=== PATIENT | female | born 1985 | race African-American/Black ===

== ENCOUNTER 2017-05-24 14:38 | Emergency (ER) | payer SELFPAY ==
[~2017-05-24] VITALS: Ht 154.9 cm; Wt 69.9 kg
[~2017-05-24 14:38] MED LIST: NAPR550T PO; ORPH100T PO
[2017-05-24 15:07] VITALS: BP 118/67
[2017-05-24] MEDS ORDERED: AMOX1TAB61 PO (15:33)
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
== END 2017-05-24 15:39 | disposition home or self-care (01) ==
LOC: ER 14:38
DX: S41.051A Open bite of right shoulder, initial encounter (principal); Y04.1XXA Assault by human bite, initial encounter; Y93.89 Activity, other specified; Y92.89 Other specified places as the place of occurrence of the external cause; Y99.8 Other external cause status
CPT/HCPCS: 99283

== ENCOUNTER 2018-04-16 22:00 | Emergency (ER) | payer SELFPAY ==
[2018-04-16 22:48] LABS: ADD MAN DIFF? NO
[2018-04-16 22:50] LABS: BASO % 0 % (0-3); EOS % 0 % (0-3); HEMATOCRIT 43.7 % (36.0-47.0); HEMOGLOBIN 14.5 g/dL (12.0-15.5); LYMPH # 1.3 x10^3/uL (1.0-4.8); LYMPH % 14 % (24-48); MEAN CORPUSCULAR HEMOGLOBIN 28 pg (25-35); MEAN CORPUSCULAR HGB CONC 33 g/dL (31-37); MEAN CORPUSCULAR VOLUME 84 fL (79-100); MONO # 0.8 x10^3/uL (0.0-1.1); MONO % 9 % (0-9); NEUT # 7.4 x10^3uL (1.8-7.7); NEUT % 77 % (31-73); PLATELET COUNT 379 x10^3/uL (140-400); RED BLOOD COUNT 5.19 x10^6/uL (3.50-5.40); RED CELL DISTRIBUTION WIDTH 14.3 % (11.5-14.5); WHITE BLOOD COUNT 9.6 x10^3/uL (4.0-11.0)
[2018-04-16] MEDS: ONDANSETRON PF 4 MG/2 ML VIAL. IV (23:10)
[2018-04-16] MEDS: IV NORMAL SALINE 1000ML BAG 1,000 ML IV (23:10)
[2018-04-16 23:18] LABS: BLOOD UREA NITROGEN 18 mg/dL (7-20); BUN/CREATININE RATIO 23 (6-20); CALCIUM 9.5 mg/dL (8.5-10.1); CARBON DIOXIDE 29 mmol/L (21-32); CHLORIDE 99 mmol/L (98-107); CREATININE 0.8 mg/dL (0.6-1.0); GFR 98.8; GLUCOSE 88 mg/dL (70-99); SODIUM 135 mmol/L (136-145)
[2018-04-16 23:19] LABS: ALBUMIN 3.9 g/dL (3.4-5.0); ALBUMIN/GLOBULIN RATIO 0.6 (1.0-1.7); ALK PHOS 74 U/L (46-116); LIPASE 112 U/L (73-393); TOTAL BILIRUBIN 1.2 mg/dL (0.2-1.0)
[2018-04-16 23:22] LABS: BILIRUBIN,URINE MODERATE (NEG); CLARITY,URINE CLOUDY; GLUCOSE,URINE NEGATIVE (NEG); NITRITE,URINE NEGATIVE (NEG); PH,URINE 5.5; PROTEIN,URINE 30 mg/dL (NEG-TRACE)
[2018-04-16 23:27] LABS: COLOR,URINE DK YELLOW
[2018-04-16 23:33] LABS: BACTERIA,URINE FEW /HPF (0-FEW); SQUAMOUS EPITHELIAL CELL,UR MOD /LPF
[2018-04-16 23:40] LABS: ALT (SGPT) 32 U/L (14-59)
[2018-04-16 23:41] LABS: ANION GAP 7 (6-14); AST (SGOT) 27 U/L (15-37); POTASSIUM 4.1 mmol/L (3.5-5.1)
[2018-04-17] MEDS: MORPHINE SULFATE 4 MG/ML DISP.SYRIN. IV (00:09)
[2018-04-17] MEDS: IOHEXOL 300 MG/ML 100ML VIAL. IV (00:25)
[2018-04-17] MEDS ORDERED: CONTRAST GIVEN. MC (00:30)
[2018-04-17] MEDS: METOCLOPRAMIDE HCL 10 MG/2 ML VIAL. IV (00:43)
[2018-04-17] MEDS: diphenhydrAMINE 50 MG/ML VIAL IVP (00:44)
[2018-04-17] MEDS: LIDO:MAALOX 1:1 20 ML SINGLE DOSE. SWSW (00:52)
[2018-04-17 07:18] LABS: URINE HCG POC HCG NEGATIVE (Negative)
== END 2018-04-17 03:06 | disposition home or self-care (01) ==
LOC: ER 04-17 03:06
DX: R10.13 Epigastric pain (principal); R11.2 Nausea with vomiting, unspecified; Z96.659 Presence of unspecified artificial knee joint
CPT/HCPCS: 36415; 74177; 76705; 80053; 81001; 81025; 83690; 84702; 85025; 87086; 96361; 96374; 96375; 99285-25; J1200; J2270; J2405; J2765; J7030; Q9967

== ENCOUNTER 2019-07-20 17:00 | Emergency (ER) | payer SELFPAY ==
[~2019-07-20] VITALS: Ht 170.2 cm; Wt 70.3 kg
[~2019-07-20 17:00] MED LIST changes: +AMOX1TAB61 PO; +HYDR-3164 PO; +NAPR-682 PO; -NAPR550T PO; +ONDA4TAB7 PO
[2019-07-20] MEDS ORDERED: IV NORMAL SALINE 1000ML BAG 1,000 ML IV SCH (17:31)
--- NOTE | 2019-07-20 17:33 | PHYS DOC ---
Past Medical History Past Medical History: No Pertinent History Past Surgical History: Knee Replacement Alcohol Use: Heavy Drug Use: None Adult General Chief Complaint Chief Complaint: ABDOMINAL PAIN HPI HPI Patient is a 34 year old female who presents with 2 weeks of nausea and vomiting. History of pancreatitis. Patient drinks a sixpack of beer daily. Patient rates her epigastric pain is a burning and 9 out of 10. Review of Systems Review of Systems GI: abdominal pain, nausea, vomiting, denies bloody stools or diarrhea [] All other systems were reviewed and found to be within normal limits, except as documented in this note. Current Medications Current Medications Current Medications Medications (Trade) Dose Ordered Sig/Eran Start Time Stop Time Status Last Admin Dose Admin Fentanyl Citrate (Fentanyl 2ml Vial) 50 mcg 1X ONCE 07/20/19 18:00 07/20/19 18:01 DC 07/20/19 17:49 50 MCG Info (CONTRAST GIVEN -- Rx MONITORING) 1 each PRN DAILY PRN 07/20/19 18:00 07/22/19 17:59 Iohexol (Omnipaque 300 Mg/ml) 75 ml 1X ONCE 07/20/19 17:45 07/20/19 17:53 DC 07/20/19 18:14 75 ML Multi-Ingredient Mouthwash/Gargle (Gi Cocktail) 20 ml 1X ONCE 07/20/19 19:30 07/20/19 19:31 07/20/19 19:29 20 ML Multivitamins 10 ml/Thiamine HCl 100 mg/Folic Acid 1 mg/Sodium Chloride 1,011.2 ml @ 1,000.088 mls/hr 1X ONCE 07/20/19 19:00 07/20/19 20:00 07/20/19 18:56 1,000.088 MLS/HR Ondansetron HCl (Zofran) 4 mg 1X ONCE 07/20/19 18:00 07/20/19 18:01 DC 07/20/19 17:49 4 MG Pantoprazole Sodium (PROTONIX VIAL for IV PUSH) 40 mg 1X ONCE 07/20/19 18:00 07/20/19 18:01 DC 07/20/19 17:50 40 MG Sodium Chloride 1,000 ml @ 1,000 mls/hr Q1H 07/20/19 17:31 07/20/19 18:30 DC 07/20/19 17:31 1,000 MLS/HR Allergies Allergies Allergies Coded Allergies Type Severity Reaction Last Updated Verified No Known Drug Allergies 02/10/16 No Physical Exam Physical Exam Constitutional: Well developed, well nourished, no acute distress, non-toxic appearance. [] Cardiovascular:Heart rate regular rhythm, no murmur [] Lungs & Thorax: Bilateral breath sounds clear to auscultation [] Abdomen: Bowel sounds normal, soft, generalized tenderness, no masses, no pulsatile masses. [] Skin: Warm, dry, no erythema, no rash. [] Extremities: No tenderness, no cyanosis, no clubbing, ROM intact, no edema. [] Neurologic: Alert and oriented X 3, normal motor function, normal sensory function, no focal deficits noted. [] Psychologic: Affect normal, judgement normal, mood normal. [] Current Patient Data Vital Signs Vital Signs Date Time Temp Pulse Resp B/P (MAP) Pulse Ox O2 Delivery O2 Flow Rate FiO2 07/20/19 18:57 57 15 112/68 (83) 97 Room Air 07/20/19 17:26 99.3 99.3 Lab Values Laboratory Tests Test 07/20/19 17:40 07/20/19 19:00 07/20/19 19:05 White Blood Count 7.4 x10^3/uL (4.0-11.0) Red Blood Count 5.02 x10^6/uL (3.50-5.40) Hemoglobin 13.9 g/dL (12.0-15.5) Hematocrit 42.1 % (36.0-47.0) Mean Corpuscular Volume 84 fL (79-100) Mean Corpuscular Hemoglobin 28 pg (25-35) Mean Corpuscular Hemoglobin Concent 33 g/dL (31-37) Red Cell Distribution Width 14.0 % (11.5-14.5) Platelet Count 293 x10^3/uL (140-400) Neutrophils (%) (Auto) 74 % (31-73) H Lymphocytes (%) (Auto) 17 % (24-48) L Monocytes (%) (Auto) 9 % (0-9) Eosinophils (%) (Auto) 0 % (0-3) Basophils (%) (Auto) 1 % (0-3) Neutrophils # (Auto) 5.4 x10^3/uL (1.8-7.7) Lymphocytes # (Auto) 1.2 x10^3/uL (1.0-4.8) Monocytes # (Auto) 0.6 x10^3/uL (0.0-1.1) Eosinophils # (Auto) 0.0 x10^3/uL (0.0-0.7) Basophils # (Auto) 0.0 x10^3/uL (0.0-0.2) Sodium Level 148 mmol/L (136-145) H Potassium Level 3.4 mmol/L (3.5-5.1) L Chloride Level 107 mmol/L (98-107) Carbon Dioxide Level 26 mmol/L (21-32) Anion Gap 15 (6-14) H Blood Urea Nitrogen 12 mg/dL (7-20) Creatinine 1.0 mg/dL (0.6-1.0) Estimated GFR (Cockcroft-Gault) 75.9 BUN/Creatinine Ratio 12 (6-20) Glucose Level 105 mg/dL (70-99) H Calcium Level 9.9 mg/dL (8.5-10.1) Total Bilirubin 0.5 mg/dL (0.2-1.0) Aspartate Amino Transferase (AST) 15 U/L (15-37) Alanine Aminotransferase (ALT) 19 U/L (14-59) Alkaline Phosphatase 64 U/L (46-116) Troponin I Quantitative < 0.017 ng/mL (0.000-0.055) Total Protein 8.4 g/dL (6.4-8.2) H Albumin 4.3 g/dL (3.4-5.0) Albumin/Globulin Ratio 1.0 (1.0-1.7) Lipase 228 U/L (73-393) Ethyl Alcohol Level < 10 mg/dL (0-10) Urine Collection Type Unknown Urine Color Yellow Urine Clarity Clear Urine pH 8.5 Urine Specific [place] >=1.030 Urine Protein 30 mg/dL (NEG-TRACE) Urine Glucose (UA) Negative mg/dL (NEG) Urine Ketones (Stick) 40 mg/dL (NEG) Urine Blood Negative (NEG) Urine Nitrite Negative (NEG) Urine Bilirubin Negative (NEG) Urine Urobilinogen Dipstick 1.0 mg/dL (0.2 mg/dL) Urine Leukocyte Esterase Negative (NEG) Urine RBC 0 /HPF (0-2) Urine WBC 0 /HPF (0-4) Urine Squamous Epithelial Cells Few /LPF Urine Bacteria Few /HPF (0-FEW) Urine Opiates Screen Neg (NEG) Urine Methadone Screen Neg (NEG) Urine Barbiturates Neg (NEG) Urine Phencyclidine Screen Pos (NEG) Urine Amphetamine/Methamphetamine Neg (NEG) Urine Benzodiazepines Screen Neg (NEG) Urine Cocaine Screen Pos (NEG) Urine Cannabinoids Screen Neg (NEG) Urine Ethyl Alcohol Neg (NEG) POC Urine HCG, Qualitative Hcg negative (Negative) Laboratory Tests 07/20/19 17:40 Laboratory Tests 07/20/19 17:40 EKG EKG Sinus Rhythm and no STEMI Interpretation Time: [address] Reyez Radiology/Procedures Radiology/Procedures [] Impressions: [facility] [address] [place] [address] IMAGING REPORT Signed PATIENT: JULI CARBONE ACCOUNT: [id number] : 1985 LOCATION: ER AGE: 34 SEX: F EXAM STATUS: REG ER ORD. PHYSICIAN: ANTONY HINOJOSA APRN REASON: generalized abdominal pain PROCEDURE: CT ABD PELV W/ IV CONTRST ONLY CT scan of the abdomen and pelvis with contrast 07/20/2019 CLINICAL HISTORY: Generalized abdominal pain. TECHNIQUE: After the intravenous administration of 75 cc of Omnipaque 300 only, contiguous, 5 mm axial sections were obtained through the abdomen and pelvis. One or more of the following individualized dose reduction techniques were utilized for this study: 1. Automated exposure control. 2. Adjustment of the mA and/or kV according to patient size. 3. Use of iterative reconstruction technique. FINDINGS: Comparison study is dated 04/23/2018. Images through the lung bases demonstrate minimal dependent subsegmental atelectasis bilaterally. A 3 mm calcified granuloma is seen involving the left lower lobe. Images through the lung bases demonstrate decreased attenuation of the liver parenchyma consistent with fatty infiltration. The spleen, pancreas, adrenal glands and kidneys are within normal limits. The abdominal aorta tapers normally. The gallbladder is contracted. No free fluid or free air is seen within the abdomen. There is no evidence of bowel obstruction. The appendix is well-visualized and is within normal limits. Images through the pelvis demonstrate the urinary bladder distended with urine. Calcifications are seen within the pelvis consistent with phleboliths. No adnexal mass is seen. No free fluid is noted. Mild to moderate S-shaped curvature of the thoracolumbar spine is seen. Degenerative changes are seen involving lower thoracic and throughout the lumbar spine. IMPRESSION: No acute abnormality is seen. Electronically signed by: Yosef Martínez MD (07/20/2019 6:33 PM) [facility] DICTATED and SIGNED BY: YOSEF MARTÍNEZ MD DATE: 07/20/191832 Course & Med Decision Making Course & Med Decision Making Generalized abdominal pain. Patient states that she can not keep food or fluids down. Denies blood in her vomit or stool. Skin pink warm and dry. Alert and oriented. Speaks in full clear sentences. Ambulatory with a steady gait. PERRLA. Denies diarrhea, soa, chest pain, dizziness, headache, numbness or tingling. No extremity swelling. Lungs are clear to auscultation. Patient states she has not had a drink since Saturday. Patient has no tremors or any signs of etoh withdrawal. Patient is calm and cooperative. CT ABD PELV shows no acute findings. 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 Patient received Protonix, NS bolus, Banana Bag and a GI cocktail in the ED. I have spoken to Dr Reyez about findings on this patient and plan of care. Dragon Disclaimer Michelleon Disclaimer This electronic medical record was generated, in whole or in part, using a voice recognition dictation system. Departure Departure Impression: Primary Impression: Nausea and vomiting Additional Impression: Generalized abdominal pain Disposition: 01 HOME, SELF-CARE Condition: STABLE Referrals: NO PCP (PCP) Patient Instructions: Alcoholic Gastritis-Brief Additional Instructions: Follow up with primary care provider. Stop drinking alcohol as soon as possible. Take medications as prescribed. Scripts Ondansetron (ONDANSETRON ODT) 4 Mg Tab.rapdis 1 TAB PO PRN Q6-8HRS, #20 TAB Prov: ANTONY HINOJOSA ASBESTOS PIPE SUPERVISOR 07/20/19 Famotidine (PEPCID) 20 Mg Tablet 20 MG PO BID, #20 TAB Prov: ANTONY HINOJOSA 07/20/19 Problem Qualifiers Primary Impression: Nausea and vomiting Vomiting type: unspecified Vomiting Intractability: non-intractable Qualified Codes: R11.2 - Nausea with vomiting, unspecified ANTONY HINOJOSA [employer]BESTOS PIPE SUPERVISOR Jul 20, 2019 17:33
[2019-07-20] MEDS ORDERED: IOHEXOL 300 MG/ML 100ML VIAL. IV ONE (17:45)
[2019-07-20 17:49] LABS: BASO % 1 % (0-3); EOS % 0 % (0-3); HEMATOCRIT 42.1 % (36.0-47.0); HEMOGLOBIN 13.9 g/dL (12.0-15.5); LYMPH # 1.2 x10^3/uL (1.0-4.8); LYMPH % 17 % (24-48); MEAN CORPUSCULAR HEMOGLOBIN 28 pg (25-35); MEAN CORPUSCULAR HGB CONC 33 g/dL (31-37); MEAN CORPUSCULAR VOLUME 84 fL (79-100); MONO # 0.6 x10^3/uL (0.0-1.1); MONO % 9 % (0-9); NEUT # 5.4 x10^3/uL (1.8-7.7); NEUT % 74 % (31-73); PLATELET COUNT 293 x10^3/uL (140-400); RED BLOOD COUNT 5.02 x10^6/uL (3.50-5.40); WHITE BLOOD COUNT 7.4 x10^3/uL (4.0-11.0)
[2019-07-20 17:59] LABS: CALCIUM 9.9 mg/dL (8.5-10.1); GFR 75.9; POTASSIUM 3.4 mmol/L (3.5-5.1)
[2019-07-20] MEDS ORDERED: CONTRAST GIVEN. MC PRN (18:00)
[2019-07-20] MEDS ORDERED: ONDANSETRON PF 4 MG/2 ML VIAL. IV ONE (18:00)
[2019-07-20] MEDS ORDERED: PANTOPRAZOLE IV PUSH 40 MG VIAL. IVP ONE (18:00)
[2019-07-20] MEDS ORDERED: fentaNYL PF VIAL 100 MCG/2 ML VIAL IV ONE (18:00)
[2019-07-20 18:04] LABS: ALBUMIN 4.3 g/dL (3.4-5.0); TOTAL BILIRUBIN 0.5 mg/dL (0.2-1.0); TOTAL PROTEIN 8.4 g/dL (6.4-8.2)
--- NOTE | 2019-07-20 18:36 | RAD ---
CT scan of the abdomen and pelvis with contrast 07/20/2019 CLINICAL HISTORY: Generalized abdominal pain. TECHNIQUE: After the intravenous administration of 75 cc of Omnipaque 300 only, contiguous, 5 mm axial sections were obtained through the abdomen and pelvis. One or more of the following individualized dose reduction techniques were utilized for this study: 1. Automated exposure control. 2. Adjustment of the mA and/or kV according to patient size. 3. Use of iterative reconstruction technique. FINDINGS: Comparison study is dated 04/23/2018. Images through the lung bases demonstrate minimal dependent subsegmental atelectasis bilaterally. A 3 mm calcified granuloma is seen involving the left lower lobe. Images through the lung bases demonstrate decreased attenuation of the liver parenchyma consistent with fatty infiltration. The spleen, pancreas, adrenal glands and kidneys are within normal limits. The abdominal aorta tapers normally. The gallbladder is contracted. No free fluid or free air is seen within the abdomen. There is no evidence of bowel obstruction. The appendix is well-visualized and is within normal limits. Images through the pelvis demonstrate the urinary bladder distended with urine. Calcifications are seen within the pelvis consistent with phleboliths. No adnexal mass is seen. No free fluid is noted. Mild to moderate S-shaped curvature of the thoracolumbar spine is seen. Degenerative changes are seen involving lower thoracic and throughout the lumbar spine. IMPRESSION: No acute abnormality is seen. Electronically signed by: Yosef Martínez MD (07/20/2019 6:33 PM) [facility]
[2019-07-20] MEDS ORDERED: MULTIVIT INFUSN,ADULT 4,VIT K 10 ML, THIAMINE INJ 100 MG, FOLIC ACID INJ 1 MG in IV NOR... IV ONE (19:00)
[2019-07-20 19:12] LABS: BILIRUBIN,URINE NEGATIVE (NEG); CLARITY,URINE CLEAR; COLOR,URINE YELLOW; NITRITE,URINE NEGATIVE (NEG); PH,URINE 8.5; PROTEIN,URINE 30 mg/dL (NEG-TRACE)
[2019-07-20 19:18] LABS: AMPHETAMINE/METHAMPHETAMINE NEG (NEG); BARBITURATES NEG (NEG); BENZODIAZEPINES NEG (NEG); CANNABINOIDS NEG (NEG); COCAINE POS (NEG); METHADONE NEG (NEG); OPIATES NEG (NEG); PHENCYCLIDINE POS (NEG)
[2019-07-20 19:22] LABS: BACTERIA,URINE FEW /HPF (0-FEW); RBC,URINE 0 /HPF (0-2); SQUAMOUS EPITHELIAL CELL,UR FEW /LPF; WBC,URINE 0 /HPF (0-4)
[2019-07-20] MEDS ORDERED: ONDA4TAB12 PO (19:23)
[2019-07-20] MEDS ORDERED: FAMO-63 PO (19:23)
[2019-07-20] MEDS ORDERED: CEPH-264 PO (19:26)
[2019-07-20] MEDS ORDERED: LIDO:MAALOX 1:1 20 ML SINGLE DOSE. SWSW ONE (19:30)
[2019-07-20 20:40] VITALS: BP 143/85
--- NOTE | 2019-07-21 06:15 | EKG ---
[facility] [address] [place] [address] Test Date: 2019-07-20 Test Time: 19:12:29 Pat Name: JULI CARBONE Department: Room: Gender: F System Archive Analyst: : 1985 Requested By: ANTONY HINOJOSA Order Number: [id number] Reading MD: Michael Schofield MD Measurements Intervals [place] Rate: 50 P: 58 [place]: 154 QRS: -11 QRSD: 70 T: -17 QT: 468 QTc: 429 Interpretive Statements SINUS RHYTHM ATRIAL PREMATURE COMPLEX(ES) INFERIOR LEADS ABNORMAL ECG NON-SPECIFIC ST/T CHANGES Electronically Signed On 07-28-2019 15:43:43 CDT by Michael Schofield MD
== END 2019-07-20 20:55 | disposition home or self-care (01) ==
LOC: ER 17:00
DX: R11.2 Nausea with vomiting, unspecified (principal); R10.84 Generalized abdominal pain; R10.13 Epigastric pain; F10.20 Alcohol dependence, uncomplicated; Y90.9 Presence of alcohol in blood, level not specified
CPT/HCPCS: 36415; 74177; 80053; 80307; 81001; 81025; 83690; 84484; 85025; 93005; 96361; 96365; 96375; 99285; C9113; G0480; J2405; J3010; J7030; Q9967

== ENCOUNTER 2020-03-04 08:24 | Emergency (ER) | payer SELFPAY ==
[~2020-03-04] VITALS: Ht 154.9 cm; Wt 67.0 kg
[~2020-03-04 08:24] MED LIST changes: +CEPH-264 PO; +FAMO-63 PO; +ONDA4TAB12 PO
--- NOTE | 2020-03-04 09:37 | PHYS DOC ---
Past Medical History Past Medical History: No Pertinent History Past Surgical History: Knee Replacement Smoking Status: Never Smoker Alcohol Use: Heavy Drug Use: None General Adult EDM: Chief Complaint: GI PROBLEM HPI: HPI: Patient is a 35 year old female who presents to ER today for evaluation of nausea, vomiting, abdominal pain for about 3 days. Patient said whenever she vomits she noticed some yellow bile in her vomitus. Patient denies any fever, no diarrhea., No chest pain, no trouble breathing, no cough. 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 Patient said none of her client had the coronavirus. Review of Systems: Review of Systems: Constitutional: Denies fever or chills. [] Eyes: Denies change in visual acuity. [] HENT: Denies nasal congestion or sore throat. [] Respiratory: Denies cough or shortness of breath. [] Cardiovascular: Denies chest pain or edema. [] GI: Positive for nausea vomiting, abdominal pain, no diarrhea : Denies dysuria. [] Musculoskeletal: Denies back pain or joint pain. [] Integument: Denies rash. [] Neurologic: Denies headache, focal weakness or sensory changes. [] Endocrine: Denies polyuria or polydipsia. [] Lymphatic: Denies swollen glands. [] Psychiatric: Denies depression or anxiety. [] Heart Score: Risk Factors: Risk Factors: DM, Current or recent (<one month) smoker, HTN, HLP, family history of CAD, obesity. Risk Scores: Score 0 - 3: 2.5% MACE over next 6 weeks - Discharge Home Score 4 - 6: 20.3% MACE over next 6 weeks - Admit for Clinical Observation Score 7 - 10: 72.7% MACE over next 6 weeks - Early Invasive Strategies Current Medications: Current Medications Medications (Trade) Dose Ordered Sig/Eran Start Time Stop Time Status Last Admin Dose Admin Ondansetron HCl (Zofran) 4 mg 1X ONCE 03/04/20 09:45 03/04/20 09:46 UNV Sodium Chloride 1,000 ml @ 1,000 mls/hr 1X ONCE 03/04/20 09:45 03/04/20 10:44 Allergies: Allergies: Allergies Coded Allergies Type Severity Reaction Last Updated Verified No Known Drug Allergies 02/10/16 No Physical Exam: PE: Constitutional: Well developed, well nourished, no acute distress, non-toxic appearance. [] HENT: Normocephalic, atraumatic, bilateral external ears normal, oropharynx moist, no oral exudates, nose normal. [] Eyes: PERRLA, EOMI, conjunctiva normal, no discharge. [] Neck: Normal range of motion, no tenderness, supple, no stridor. [] Cardiovascular:Heart rate regular rhythm, no murmur [] Lungs & Thorax: Bilateral breath sounds clear to auscultation [] Abdomen: Bowel sounds normal, soft, there is tenderness to palpation in epigastric area, no masses, no pulsatile masses. [] Skin: Warm, dry, no erythema, no rash. [] Back: No tenderness, no CVA tenderness. [] Extremities: No tenderness, no cyanosis, no clubbing, ROM intact, no edema. [] Neurologic: Alert and oriented X 3, normal motor function, normal sensory function, no focal deficits noted. [] Psychologic: Affect normal, judgement normal, mood normal. [] Current Patient Data: Labs: Laboratory Tests Test 03/04/20 09:15 03/04/20 09:53 White Blood Count 6.3 x10^3/uL Red Blood Count 5.00 x10^6/uL Hemoglobin 14.2 g/dL Hematocrit 43.1 % Mean Corpuscular Volume 86 fL Mean Corpuscular Hemoglobin 28 pg Mean Corpuscular Hemoglobin Concent 33 g/dL Red Cell Distribution Width 15.1 % Platelet Count 366 x10^3/uL Neutrophils (%) (Auto) 66 % Lymphocytes (%) (Auto) 24 % Monocytes (%) (Auto) 10 % Eosinophils (%) (Auto) 0 % Basophils (%) (Auto) 1 % Neutrophils # (Auto) 4.2 x10^3/uL Lymphocytes # (Auto) 1.5 x10^3/uL Monocytes # (Auto) 0.6 x10^3/uL Eosinophils # (Auto) 0.0 x10^3/uL Basophils # (Auto) 0.0 x10^3/uL Urine Collection Type Unknown Urine Color Leonie Urine Clarity Cloudy Urine pH 8.5 Urine Specific [place] >=1.030 Urine Protein 100 mg/dL Urine Glucose (UA) Negative mg/dL Urine Ketones (Stick) Negative mg/dL Urine Blood Negative Urine Nitrite Negative Urine Bilirubin Small Urine Urobilinogen Dipstick 1.0 mg/dL Urine Leukocyte Esterase Small Urine RBC 1-2 /HPF Urine WBC 5-10 /HPF Urine Squamous Epithelial Cells Many /LPF Urine Bacteria Few /HPF Sodium Level 142 mmol/L Potassium Level 3.6 mmol/L Chloride Level 107 mmol/L Carbon Dioxide Level 24 mmol/L Anion Gap 11 Blood Urea Nitrogen 11 mg/dL Creatinine 1.2 mg/dL Estimated GFR (Cockcroft-Gault) 61.2 BUN/Creatinine Ratio 9 Glucose Level 109 mg/dL Calcium Level 9.5 mg/dL Total Bilirubin 0.6 mg/dL Aspartate Amino Transf (AST/SGOT) 24 U/L Alanine Aminotransferase (ALT/SGPT) 33 U/L Alkaline Phosphatase 62 U/L Total Protein 8.4 g/dL Albumin 4.3 g/dL Albumin/Globulin Ratio 1.0 Lipase 252 U/L Bedside Urine HCG, Qualitative Hcg negative Current Medications Medications (Trade) Dose Ordered Sig/Eran Route PRN Reason Start Time Stop Time Status Last Admin Dose Admin Sodium Chloride 1,000 ml @ 1,000 mls/hr 1X ONCE IV 03/04/20 09:45 03/04/20 10:44 DC 03/04/20 09:47 Ondansetron HCl (Zofran) 4 mg 1X ONCE IVP 03/04/20 09:45 03/04/20 09:46 DC 03/04/20 09:47 Multi-Ingredient Mouthwash/Gargle (Gi Cocktail) 20 ml 1X ONCE SWSW 03/04/20 11:00 03/04/20 11:01 DC 03/04/20 11:37 Famotidine (Pepcid Vial) 20 mg 1X ONCE IVP 03/04/20 11:00 03/04/20 11:01 DC 03/04/20 11:40 Vital Signs: Vital Signs Date Time Temp Pulse Resp B/P (MAP) Pulse Ox O2 Delivery O2 Flow Rate FiO2 03/04/20 08:51 99.0 80 16 127/79 (95) 98 Room Air 99.0 EKG: EKG: [] Radiology/Procedures: Radiology/Procedures: [][facility] [address] [place], [place] [id number] IMAGING REPORT Signed PATIENT: JULI CARBONE ACCOUNT: [id number] : 1985 LOCATION: ER AGE: 35 SEX: F EXAM STATUS: REG ER ORD. PHYSICIAN: GLORY NAIR DO REASON: ABDOMINAL PAIN, NAUSEA, VOMITING PROCEDURE: CT ABDOMEN PELVIS WO CONTRAST Axial CT images of the abdomen and pelvis with coronal and sagittal reformats were performed without contrast per renal colic protocol. Exposure: One or more of the following individualized dose reduction techniques were utilized for this examination: 1. Automated exposure control 2. Adjustment of the mA and/or kV according to patient size 3. Use of iterative reconstruction technique Indication: Reason: ABDOMINAL PAIN, NAUSEA, VOMITING / Spl. Instructions: / History: Comparison: 07/20/2019. Findings: No renal, ureteral, or bladder stones are identified. No hydronephrosis, perinephric fat stranding, or hydroureter are seen bilaterally. There is significant scoliosis of the lumbar spine this appears stable. The remainder of the non contrasted abdomen and pelvis is normal in appearance, although evaluation is limited on an unenhanced exam. Impression: 1. No evidence of urolithiasis or urinary obstruction. Electronically signed by: Av Martinez MD (03/04/2020 11:31 AM) [id number] DICTATED and SIGNED BY: AV MARTINEZ MD DATE: 03/04/20 1131 Course & Med Decision Making: Course & Med Decision Making Pertinent Labs and Imaging studies reviewed. (See chart for details) [] Dragon Disclaimer: Dragon Disclaimer: This electronic medical record was generated, in whole or in part, using a voice recognition dictation system. Departure Departure Impression: Primary Impression: Gastritis Additional Impression: Nausea & vomiting Disposition: 01 HOME, SELF-CARE Condition: IMPROVED Referrals: NO PCP (PCP) ADAM CHRISTOPHER MD PLEASE CALL THIS GI DOCTOR FOR FOLLOW UP NEXT WEEK. Patient Instructions: Gastritis, Adult, Nausea and Vomiting Additional Instructions: Thank you for visiting our Emergency Department. We appreciate you trusting us with your care. If any additional problems come up don't hesitate to return to visit us. Please follow up with your primary care provider so they can plan additional care if needed and know about the problem that you had. If symptoms worsen come back to the Emergency Department. Any concerning symptoms that start such as chest pain, shortness of air, weakness or numbness on one side of the body, running high fevers or any other concerning symptoms return to the ER. Scripts Metoclopramide Hcl (REGLAN) 10 Mg Tablet 1 TAB PO QID PRN for NAUSEA for 10 Days, #20 TAB 0 Refills before food and bedtime Prov: GLORY NAIR DO 03/04/20 Sucralfate (CARAFATE) 1 Gm Tablet 1 TAB PO QID for 14 Days, #56 TAB 0 Refills Prov: GLORY NAIR DO 03/04/20 Omeprazole Magnesium (PRILOSEC OTC) 20 Mg Tablet. 1 TAB PO DAILY for 30 Days, #30 TAB 0 Refills Prov: GLORY NAIR DO 03/04/20 GLORY NAIR DO Mar 04, 2020 09:37
[2020-03-04] MEDS ORDERED: IV NORMAL SALINE 1000ML BAG 1,000 ML IV ONE (09:45)
[2020-03-04] MEDS ORDERED: ONDANSETRON PF 4 MG/2 ML VIAL. IVP ONE (09:45)
[2020-03-04 09:58] LABS: BASO % 1 % (0-3); EOS % 0 % (0-3); HEMATOCRIT 43.1 % (36.0-47.0); HEMOGLOBIN 14.2 g/dL (12.0-15.5); LYMPH # 1.5 x10^3/uL (1.0-4.8); LYMPH % 24 % (24-48); MEAN CORPUSCULAR HEMOGLOBIN 28 pg (25-35); MEAN CORPUSCULAR HGB CONC 33 g/dL (31-37); MEAN CORPUSCULAR VOLUME 86 fL (79-100); MONO # 0.6 x10^3/uL (0.0-1.1); MONO % 10 % (0-9); NEUT # 4.2 x10^3/uL (1.8-7.7); NEUT % 66 % (31-73); PLATELET COUNT 366 x10^3/uL (140-400); RED CELL DISTRIBUTION WIDTH 15.1 % (11.5-14.5); WHITE BLOOD COUNT 6.3 x10^3/uL (4.0-11.0)
[2020-03-04 09:59] LABS: CALCIUM 9.5 mg/dL (8.5-10.1); CREATININE 1.2 mg/dL (0.6-1.0); GFR 61.2; POTASSIUM 3.6 mmol/L (3.5-5.1)
[2020-03-04 10:05] LABS: ALBUMIN 4.3 g/dL (3.4-5.0); TOTAL BILIRUBIN 0.6 mg/dL (0.2-1.0); TOTAL PROTEIN 8.4 g/dL (6.4-8.2)
[2020-03-04 10:24] LABS: BILIRUBIN,URINE SMALL (NEG); CLARITY,URINE CLOUDY; COLOR,URINE AMBER; NITRITE,URINE NEGATIVE (NEG); PH,URINE 8.5 (<5.0-8.0); PROTEIN,URINE 100 mg/dL (NEG-TRACE)
[2020-03-04 10:46] LABS: SQUAMOUS EPITHELIAL CELL,UR MANY /LPF
[2020-03-04 10:48] LABS: BACTERIA,URINE FEW /HPF (0-FEW)
[2020-03-04] MEDS ORDERED: LIDO:MAALOX 1:1 20 ML SINGLE DOSE. SWSW ONE (11:00)
[2020-03-04] MEDS ORDERED: FAMOTIDINE 20 MG/2 ML VIAL IVP ONE (11:00)
--- NOTE | 2020-03-04 11:34 | RAD ---
Axial CT images of the abdomen and pelvis with coronal and sagittal reformats were performed without contrast per renal colic protocol. Exposure: One or more of the following individualized dose reduction techniques were utilized for this examination: 1. Automated exposure control 2. Adjustment of the mA and/or kV according to patient size 3. Use of iterative reconstruction technique Indication: Reason: ABDOMINAL PAIN, NAUSEA, VOMITING / Spl. Instructions: / History: Comparison: 07/20/2019. Findings: No renal, ureteral, or bladder stones are identified. No hydronephrosis, perinephric fat stranding, or hydroureter are seen bilaterally. There is significant scoliosis of the lumbar spine this appears stable. The remainder of the non contrasted abdomen and pelvis is normal in appearance, although evaluation is limited on an unenhanced exam. Impression: 1. No evidence of urolithiasis or urinary obstruction. Electronically signed by: Av Martinez MD (03/04/2020 11:31 AM) [id number]
[2020-03-04 12:15] VITALS: BP 132/87
[2020-03-04] MEDS ORDERED: METO10TA81 PO (12:45)
[2020-03-04] MEDS ORDERED: SUCR1TAB35 PO (12:45)
[2020-03-04] MEDS ORDERED: OMEP20TA63 PO (12:45)
== END 2020-03-04 12:45 | disposition home or self-care (01) ==
LOC: ER 08:24
DX: K29.70 Gastritis, unspecified, without bleeding (principal); R11.2 Nausea with vomiting, unspecified; R10.13 Epigastric pain; F10.10 Alcohol abuse, uncomplicated; Z98.890 Other specified postprocedural states
CPT/HCPCS: 36415; 74176; 80053; 81001; 81025; 83690; 85025; 87086; 96361; 96374; 96375; 99285; A9552; J2405; J3490; J7030

== ENCOUNTER 2020-05-11 11:49 | Emergency (ER) | payer SELFPAY ==
[~2020-05-11] VITALS: Ht 154.9 cm; Wt 68.1 kg
[~2020-05-11 11:49] MED LIST changes: +METO10TA81 PO; +OMEP20TA63 PO; +SUCR1TAB35 PO
[2020-05-11] MEDS ORDERED: IV NORMAL SALINE 1000ML BAG 1,000 ML IV ONE (12:30)
--- NOTE | 2020-05-11 12:41 | PHYS DOC ---
Past Medical History Past Medical History: No Pertinent History Past Surgical History: Knee Replacement Smoking Status: Never Smoker Alcohol Use: Heavy Drug Use: None General Adult EDM: Chief Complaint: NAUSEA/VOMITING/DIARRHA HPI: HPI: Patient is a 35 year old AA female who presents to the emergency department with complaints of nausea, vomiting, and abdominal pain for the last 3 days. Patient states she has vomited more than 5 times in the last 24 hours. She states that some of her vomit appeared red. She denies any diarrhea, constipation, fever, cough, shortness of breath, back pain, dysuria, hematuria, low back pain, chest pain, or palpitations. She does report some increase in urinary frequency. She currently rates her pain a 10 out of 10 on the pain scale, she denies any alleviating factors, the pain is worse when she vomits. She denies any radiation of the pain. Review of Systems: Review of Systems: Constitutional: Denies fever or chills. [] HENT: Denies nasal congestion or sore throat. [] Respiratory: Denies cough or shortness of breath. [] Cardiovascular: Denies chest pain or edema. [] GI: See HPI : Denies dysuria; reports increased urinary frequency [] Musculoskeletal: Denies back pain or joint pain. [] Integument: Denies rash. [] Neurologic: Denies headache, focal weakness or sensory changes. [] Endocrine: Denies polyuria or polydipsia. [] Psychiatric: Denies depression or anxiety. [] Heart Score: Risk Factors: Risk Factors: DM, Current or recent (<one month) smoker, HTN, HLP, family history of CAD, obesity. Risk Scores: Score 0 - 3: 2.5% MACE over next 6 weeks - Discharge Home Score 4 - 6: 20.3% MACE over next 6 weeks - Admit for Clinical Observation Score 7 - 10: 72.7% MACE over next 6 weeks - Early Invasive Strategies Current Medications: Current Medications Medications (Trade) Dose Ordered Sig/Eran Start Time Stop Time Status Last Admin Dose Admin Ondansetron HCl (Zofran) 4 mg 1X ONCE 05/11/20 12:45 05/11/20 12:46 Sodium Chloride 1,000 ml @ 1,000 mls/hr 1X ONCE 05/11/20 12:30 05/11/20 13:29 Allergies: Allergies: Allergies Coded Allergies Type Severity Reaction Last Updated Verified No Known Drug Allergies 02/10/16 No Physical Exam: PE: Constitutional: Well developed, well nourished, no acute distress, non-toxic appearance. [] HENT: Normocephalic, atraumatic, bilateral external ears normal, oropharynx moist, no oral exudates, nose normal. [] Eyes: PERRLA, EOMI, conjunctiva normal, no discharge. [] Neck: Normal range of motion, no stridor. [] Cardiovascular:Heart rate regular rhythm, no murmur [] Lungs & Thorax: Bilateral breath sounds clear to auscultation, Respirations even and unlabored, no retractions, no respiratory distress[] Abdomen: Bowel sounds normal, soft; epigastric, right upper quadrant, and right lower quadrant TTP, no rebound tenderness, no guarding, no masses, no pulsatile masses, positive McBurney's point tenderness, negative obturator and psoas signs. [] Skin: Warm, dry, no erythema, no rash. [] Back: No tenderness Extremities: No cyanosis, ROM intact, no edema. [] Neurologic: Alert and oriented X 3, normal motor function, no focal deficits noted. [] Psychologic: Affect normal, judgement normal, mood normal. [] EKG: EKG: [] Radiology/Procedures: Radiology/Procedures: PROCEDURE: CT ABD PELV W/ IV CONTRST ONLY INDICATION: Reason: right sided and epigastric pain, n/v / Spl. Instructions: [id number] 75ML / History: COMPARISON: May 11, 2020 TECHNIQUE: Axial CT images obtained through the abdomen and pelvis with contrast. One or more of the following individualized dose reduction techniques were utilized for this examination: 1. Automated exposure control; 2. Adjustment of the mA and/or kV according to patient size; 3. Use of iterative reconstruction technique. FINDINGS: Abdominal aorta is nonaneurysmal. Heterogenous enhancement of the liver. No peripancreatic fluid collection. Spleen unremarkable. No hydronephrosis. Urinary bladder has minimal urine within it at time of exam. Uterus is visualized. Partially visualized within the right perineal region there is an oval-shaped density seen measuring approximately 27 x 13 mm within the fat. This was present on prior as well appears chronic in nature with a nonspecific appearance. Causes such as cyst formation with debris within the differential. Small fat-containing umbilical hernia. No periappendiceal inflammation. No dilated loops of bowel to suggest obstruction. metallic density structure again seen within the right pelvic sidewall IMPRESSION: * No evidence of bowel obstruction or appendicitis. * There is some heterogenous attenuation of the liver. This could be secondary to phase of contrast but would correlate with symptoms and laboratory markers to ensure there is no pathologic condyles such as hepatic inflammation.[] Course & Med Decision Making: Course & Med Decision Making Pertinent Labs and Imaging studies reviewed. (See chart for details) 35-year-old female who presents the emergency department with complaints of nausea, vomiting, and abdominal pain for 3 days. Work-up includes labs, CT abdomen, IV fluids, Zofran, fentanyl, and p.o. challenge. CBC is unremarkable; CMP revealed a potassium of 2.9, creatinine of 1.1, glucose 125, calcium of 10.2, and protein of 9; patient's a leukoesterase with 0 white blood cells, many squams, and moderate bacteria urine hCG is negative. Sample is likely contaminated. Patient was given 1 L of normal saline, 4 mg of Zofran, and 50 mcg of fentanyl. She reported feeling better after these medications. Patient tolerated a p.o. challenge. She was given 40 mEq of potassium while in the emergency department. Patient did not vomit after taking the potassium. Prescription was sent over to her pharmacy electronically for Zofran. The patient was encouraged to follow clear liquid diet, and advance diet as tolerated starting with bland foods after 24 hours. She is encouraged to increase her intake of potassium, and follow-up with her primary care doctor in 1 to 2 days for reevaluation. I informed patient to return to the emergency room if symptoms worsen or she developed fever. Patient verbalized an understanding of home care, medications, follow-up, and return to ED instructions and was in agreement with the plan of care. [] Dragon Disclaimer: Lui Disclaimer: This electronic medical record was generated, in whole or in part, using a voice recognition dictation system. Departure Departure Impression: Primary Impression: Nausea and vomiting Qualified Codes: R11.2 - Nausea with vomiting, unspecified Additional Impressions: Abdominal pain, acute, right upper quadrant Abdominal pain, acute, right lower quadrant Hypokalemia Disposition: 01 HOME, SELF-CARE Condition: STABLE Referrals: NO PCP (PCP) Patient Instructions: Hypokalemia, Nausea and Vomiting, [id number] Additional Instructions: Fill prescriptions and use them as directed. Recommend clear fluids for the next 24 hours. Then you may advance to bland foods such as bananas, rice, applesauce, and dry toast. Follow-up with your primary care doctor in the next 1-2 days. Return to the emergency room if your symptoms worsen. Scripts Ondansetron Hcl (ONDANSETRON HCL) 4 Mg Tablet 1 TAB PO PRN Q6HRS PRN for NAUSEA/VOMITING for 3 Days, #10 TAB 0 Refills Prov: HUMBERTO MCDOWELL APRN 05/11/20 Justicifation of Admission Dx: Justifications for Admission: Justification of Admission Dx: N/A HUMBERTO MCDOWELL APRN May 11, 2020 12:41
[2020-05-11] MEDS ORDERED: ONDANSETRON PF 4 MG/2 ML VIAL. IV ONE (12:45)
[2020-05-11 12:47] LABS: BILIRUBIN,URINE SMALL (NEG); CLARITY,URINE CLOUDY; COLOR,URINE AMBER; NITRITE,URINE NEGATIVE (NEG); PH,URINE 8.5 (<5.0-8.0); PROTEIN,URINE 100 mg/dL (NEG-TRACE)
[2020-05-11 12:55] LABS: AMORPHOUS SEDIMENT,UR PRESENT /HPF; HYALINE CASTS, URINE FEW /HPF; SQUAMOUS EPITHELIAL CELL,UR MANY /LPF
[2020-05-11 12:56] LABS: BACTERIA,URINE MODERATE /HPF (0-FEW); WBC,URINE 0 /HPF (0-4)
[2020-05-11] MEDS ORDERED: fentaNYL PF VIAL 100 MCG/2 ML VIAL IV ONE (13:15)
[2020-05-11 13:26] LABS: BASO # 0.1 x10^3/uL (0.0-0.2); BASO % 1 % (0-3); EOS % 0 % (0-3); HEMATOCRIT 43.5 % (36.0-47.0); HEMOGLOBIN 14.4 g/dL (12.0-15.5); LYMPH # 1.1 x10^3/uL (1.0-4.8); LYMPH % 16 % (24-48); MEAN CORPUSCULAR HEMOGLOBIN 28 pg (25-35); MEAN CORPUSCULAR HGB CONC 33 g/dL (31-37); MEAN CORPUSCULAR VOLUME 86 fL (79-100); MONO # 0.6 x10^3/uL (0.0-1.1); MONO % 8 % (0-9); NEUT # 5.4 x10^3/uL (1.8-7.7); NEUT % 75 % (31-73); PLATELET COUNT 358 x10^3/uL (140-400); RED BLOOD COUNT 5.05 x10^6/uL (3.50-5.40); RED CELL DISTRIBUTION WIDTH 13.9 % (11.5-14.5); WHITE BLOOD COUNT 7.2 x10^3/uL (4.0-11.0)
[2020-05-11 13:45] LABS: ALBUMIN 4.4 g/dL (3.4-5.0); CALCIUM 10.2 mg/dL (8.5-10.1); CREATININE 1.1 mg/dL (0.6-1.0); GFR 67.6; MAGNESIUM 2.4 mg/dL (1.8-2.4); TOTAL BILIRUBIN 0.4 mg/dL (0.2-1.0)
[2020-05-11 13:56] VITALS: BP 96/53
[2020-05-11 14:08] LABS: POTASSIUM 2.9 mmol/L (3.5-5.1)
[2020-05-11] MEDS ORDERED: POTASSIUM CHLORIDE 20 MEQ TABLET.ER. PO ONE (14:30)
[2020-05-11] MEDS ORDERED: IOHEXOL 300 MG/ML 100ML VIAL. IV ONE (14:30)
[2020-05-11] MEDS ORDERED: CONTRAST GIVEN. MC PRN (14:30)
--- NOTE | 2020-05-11 14:50 | RAD ---
INDICATION: Reason: right sided and epigastric pain, n/v / Spl. Instructions: [id number] 75ML / History: COMPARISON: May 11, 2020 TECHNIQUE: Axial CT images obtained through the abdomen and pelvis with contrast. One or more of the following individualized dose reduction techniques were utilized for this examination: 1. Automated exposure control; 2. Adjustment of the mA and/or kV according to patient size; 3. Use of iterative reconstruction technique. FINDINGS: Abdominal aorta is nonaneurysmal. Heterogenous enhancement of the liver. No peripancreatic fluid collection. Spleen unremarkable. No hydronephrosis. Urinary bladder has minimal urine within it at time of exam. Uterus is visualized. Partially visualized within the right perineal region there is an oval-shaped density seen measuring approximately 27 x 13 mm within the fat. This was present on prior as well appears chronic in nature with a nonspecific appearance. Causes such as cyst formation with debris within the differential. Small fat-containing umbilical hernia. No periappendiceal inflammation. No dilated loops of bowel to suggest obstruction. metallic density structure again seen within the right pelvic sidewall IMPRESSION: * No evidence of bowel obstruction or appendicitis. * There is some heterogenous attenuation of the liver. This could be secondary to phase of contrast but would correlate with symptoms and laboratory markers to ensure there is no pathologic condyles such as hepatic inflammation. Electronically signed by: Jatinder Carrero MD (05/11/2020 2:48 PM) [id number]
[2020-05-11] MEDS ORDERED: ONDA-84 PO (15:49)
== END 2020-05-11 16:35 | disposition home or self-care (01) ==
LOC: ER 11:49
DX: R11.2 Nausea with vomiting, unspecified (principal); R10.11 Right upper quadrant pain; R10.31 Right lower quadrant pain; E87.6 Hypokalemia; R10.13 Epigastric pain; F10.20 Alcohol dependence, uncomplicated; Y90.9 Presence of alcohol in blood, level not specified
CPT/HCPCS: 36415; 74177; 80053; 81001; 81025; 83690; 83735; 85025; 87086; 96361; 96374; 96375; 99285; J2405; J3010; J7030; Q9967

== ENCOUNTER 2020-05-17 12:26 | Emergency (ER) | payer SELFPAY ==
[~2020-05-17] VITALS: Ht 154.9 cm; Wt 65.9 kg
[~2020-05-17 12:26] MED LIST changes: +ONDA-84 PO
[2020-05-17] MEDS ORDERED: IV NORMAL SALINE 1000ML BAG 1,000 ML IV ONE (13:45)
[2020-05-17] MEDS ORDERED: ONDANSETRON PF 4 MG/2 ML VIAL. IV ONE (13:45)
[2020-05-17 14:03] LABS: BASO % 1 % (0-3); EOS % 0 % (0-3); HEMATOCRIT 45.8 % (36.0-47.0); HEMOGLOBIN 15.2 g/dL (12.0-15.5); LYMPH % 17 % (24-48); MEAN CORPUSCULAR HEMOGLOBIN 29 pg (25-35); MEAN CORPUSCULAR HGB CONC 33 g/dL (31-37); MEAN CORPUSCULAR VOLUME 86 fL (79-100); MONO # 0.4 x10^3/uL (0.0-1.1); MONO % 7 % (0-9); NEUT # 4.6 x10^3/uL (1.8-7.7); NEUT % 75 % (31-73); PLATELET COUNT 276 x10^3/uL (140-400); RED BLOOD COUNT 5.34 x10^6/uL (3.50-5.40); RED CELL DISTRIBUTION WIDTH 13.3 % (11.5-14.5); WHITE BLOOD COUNT 6.1 x10^3/uL (4.0-11.0)
[2020-05-17 14:12] LABS: BILIRUBIN,URINE SMALL (NEG); CLARITY,URINE CLEAR; COLOR,URINE AMBER; NITRITE,URINE NEGATIVE (NEG); PH,URINE 6.5 (<5.0-8.0); PROTEIN,URINE 30 mg/dL (NEG-TRACE)
[2020-05-17 14:18] LABS: BARBITURATES NEG (NEG); BENZODIAZEPINES POS (NEG); CANNABINOIDS NEG (NEG); COCAINE NEG (NEG); METHADONE NEG (NEG); OPIATES NEG (NEG); PHENCYCLIDINE POS (NEG)
[2020-05-17 14:24] LABS: SQUAMOUS EPITHELIAL CELL,UR MOD /LPF
[2020-05-17 14:25] LABS: BACTERIA,URINE FEW /HPF (0-FEW)
[2020-05-17 14:28] LABS: AMPHETAMINE/METHAMPHETAMINE NEG (NEG)
[2020-05-17 14:42] LABS: CALCIUM 10.1 mg/dL (8.5-10.1); CREATININE 0.9 mg/dL (0.6-1.0); GFR 85.2
[2020-05-17 14:43] LABS: POTASSIUM 3.7 mmol/L (3.5-5.1)
[2020-05-17 14:47] LABS: ALBUMIN 4.5 g/dL (3.4-5.0); ALBUMIN/GLOBULIN RATIO 1.1 (1.0-1.7); TOTAL BILIRUBIN 0.6 mg/dL (0.2-1.0); TOTAL PROTEIN 8.7 g/dL (6.4-8.2)
[2020-05-17] MEDS ORDERED: METO10TA81 PO (15:04)
--- NOTE | 2020-05-17 15:04 | PHYS DOC ---
Past Medical History Past Medical History: GERD Past Surgical History: Knee Replacement Smoking Status: Never Smoker Alcohol Use: Heavy Drug Use: None General Adult EDM: Chief Complaint: NAUSEA/VOMITING/DIARRHA HPI: HPI: Patient is a 35-year-old female who presents with intractable nausea and vomi ting and abdominal cramps. She states this is been going on for the last couple of weeks. She states she has been to the emergency department a couple of times for this and nothing has been sorted out. She denies any melena or hematemesis. She denies hematochezia. She denies any localized abdominal pain. She does state that occasionally she has some abdominal cramping but nothing that lasts for any length of time. She adamantly denies smoking any marijuana. [] Review of Systems: Review of Systems: Constitutional: Denies fever or chills. [] Eyes: Denies change in visual acuity. [] HENT: Denies nasal congestion or sore throat. [] Respiratory: Denies cough or shortness of breath. [] Cardiovascular: Denies chest pain or edema. [] GI: Per HPI [] : Denies dysuria. [] Musculoskeletal: Denies back pain or joint pain. [] Integument: Denies rash. [] Neurologic: Denies headache, focal weakness or sensory changes. [] Endocrine: Denies polyuria or polydipsia. [] Lymphatic: Denies swollen glands. [] Psychiatric: Denies depression or anxiety. [] Heart Score: Risk Factors: Risk Factors: DM, Current or recent (<one month) smoker, HTN, HLP, family history of CAD, obesity. Risk Scores: Score 0 - 3: 2.5% MACE over next 6 weeks - Discharge Home Score 4 - 6: 20.3% MACE over next 6 weeks - Admit for Clinical Observation Score 7 - 10: 72.7% MACE over next 6 weeks - Early Invasive Strategies Current Medications: Current Medications Medications (Trade) Dose Ordered Sig/Eran Start Time Stop Time Status Last Admin Dose Admin Ondansetron HCl (Zofran) 8 mg 1X ONCE 05/17/20 13:45 05/17/20 13:51 DC 05/17/20 13:58 8 MG Sodium Chloride 1,000 ml @ 1,000 mls/hr 1X ONCE 05/17/20 13:45 05/17/20 14:44 DC 8/18/20 13:56 1,000 MLS/HR Allergies: Allergies: Allergies Coded Allergies Type Severity Reaction Last Updated Verified No Known Drug Allergies 02/10/16 No Physical Exam: PE: Constitutional: Well developed, well nourished, mild distress, non-toxic appearance. [] HENT: Normocephalic, atraumatic, bilateral external ears normal, oropharynx moist, no oral exudates, nose normal. [] Eyes: PERRLA, EOMI, conjunctiva normal, no discharge. [] Neck: Normal range of motion, no tenderness, supple, no stridor. [] Cardiovascular:Heart rate regular rhythm, no murmur [] Lungs & Thorax: Bilateral breath sounds clear to auscultation [] Abdomen: Obese, bowel sounds normal, soft, no tenderness, no masses, no pulsatile masses. [] Skin: Warm, dry, no erythema, no rash. [] Back: No tenderness, no CVA tenderness. [] Extremities: No tenderness, no cyanosis, no clubbing, ROM intact, no edema. [] Neurologic: Alert and oriented X 3, normal motor function, normal sensory function, no focal deficits noted. [] Psychologic: Anxious [] Current Patient Data: Labs: Laboratory Tests Test 05/17/20 13:33 05/17/20 13:56 05/17/20 14:02 White Blood Count 6.1 x10^3/uL (4.0-11.0) Red Blood Count 5.34 x10^6/uL (3.50-5.40) Hemoglobin 15.2 g/dL (12.0-15.5) Hematocrit 45.8 % (36.0-47.0) Mean Corpuscular Volume 86 fL (79-100) Mean Corpuscular Hemoglobin 29 pg (25-35) Mean Corpuscular Hemoglobin Concent 33 g/dL (31-37) Red Cell Distribution Width 13.3 % (11.5-14.5) Platelet Count 276 x10^3/uL (140-400) Neutrophils (%) (Auto) 75 % (31-73) H Lymphocytes (%) (Auto) 17 % (24-48) L Monocytes (%) (Auto) 7 % (0-9) Eosinophils (%) (Auto) 0 % (0-3) Basophils (%) (Auto) 1 % (0-3) Neutrophils # (Auto) 4.6 x10^3/uL (1.8-7.7) Lymphocytes # (Auto) 1.0 x10^3/uL (1.0-4.8) Monocytes # (Auto) 0.4 x10^3/uL (0.0-1.1) Eosinophils # (Auto) 0.0 x10^3/uL (0.0-0.7) Basophils # (Auto) 0.0 x10^3/uL (0.0-0.2) Sodium Level 136 mmol/L (136-145) Potassium Level 3.7 mmol/L (3.5-5.1) Chloride Level 94 mmol/L (98-107) L Carbon Dioxide Level 28 mmol/L (21-32) Anion Gap 14 (6-14) Blood Urea Nitrogen 11 mg/dL (7-20) Creatinine 0.9 mg/dL (0.6-1.0) Estimated GFR (Cockcroft-Gault) 85.2 BUN/Creatinine Ratio 12 (6-20) Glucose Level 80 mg/dL (70-99) Calcium Level 10.1 mg/dL (8.5-10.1) Total Bilirubin 0.6 mg/dL (0.2-1.0) Aspartate Amino Transferase (AST) 24 U/L (15-37) Alanine Aminotransferase (ALT) 23 U/L (14-59) Alkaline Phosphatase 73 U/L (46-116) Total Protein 8.7 g/dL (6.4-8.2) H Albumin 4.5 g/dL (3.4-5.0) Albumin/Globulin Ratio 1.1 (1.0-1.7) Lipase 178 U/L (73-393) Ethyl Alcohol Level < 10 mg/dL (0-10) Urine Collection Type Unknown Urine Color Leonie Urine Clarity Clear Urine pH 6.5 (<5.0-8.0) Urine Specific [place] >=1.030 (1.000-1.030) Urine Protein 30 mg/dL (NEG-TRACE) Urine Glucose (UA) Negative mg/dL (NEG) Urine Ketones (Stick) >=80 mg/dL (NEG) Urine Blood Trace (NEG) Urine Nitrite Negative (NEG) Urine Bilirubin Small (NEG) Urine Urobilinogen Dipstick 1.0 mg/dL (0.2 mg/dL) Urine Leukocyte Esterase Negative (NEG) Urine RBC 3-5 /HPF (0-2) Urine WBC 1-4 /HPF (0-4) Urine Squamous Epithelial Cells Mod /LPF Urine Bacteria Few /HPF (0-FEW) Urine Mucus Marked /LPF Urine Opiates Screen Neg (NEG) Urine Methadone Screen Neg (NEG) Urine Barbiturates Neg (NEG) Urine Phencyclidine Screen Pos (NEG) Urine Amphetamine/Methamphetamine Neg (NEG) Urine Benzodiazepines Screen Pos (NEG) Urine Cocaine Screen Neg (NEG) Urine Cannabinoids Screen Neg (NEG) Urine Ethyl Alcohol Neg (NEG) POC Urine HCG, Qualitative Hcg negative (Negative) Laboratory Tests 05/17/20 13:33 Laboratory Tests 05/17/20 13:33 Vital Signs: Vital Signs Date Time Temp Pulse Resp B/P (MAP) Pulse Ox O2 Delivery O2 Flow Rate FiO2 05/17/20 13:45 82 17 136/92 (107) 96 Room Air 05/17/20 13:11 97.8 97.8 EKG: EKG: [] Radiology/Procedures: Radiology/Procedures: [] Course & Med Decision Making: Course & Med Decision Making Pertinent Labs and Imaging studies reviewed. (See chart for details) ED course: Evaluation reveals a 35-year-old female with nausea and vomiting. She was given IV fluids and ate a Zofran which did help alleviate her symptoms. I will refer her to Dr. Ortega for outpatient follow-up should this continue to be a problem. [] Dragon Disclaimer: Lui Disclaimer: This electronic medical record was generated, in whole or in part, using a voice recognition dictation system. Departure Departure Impression: Primary Impression: Nausea and vomiting Qualified Codes: R11.2 - Nausea with vomiting, unspecified Disposition: 01 HOME, SELF-CARE Condition: IMPROVED Referrals: NO PCP (PCP) ADAM ORTEGA MD Patient Instructions: Nausea and Vomiting Additional Instructions: Follow with Dr. Ortega as an outpatient. Scripts Metoclopramide Hcl (REGLAN) 10 Mg Tablet 1 TAB PO Q8HRS PRN for VOMITING, #30 TAB Take 25 mg of Benadryl with each dose Prov: ZENAIDA ARZOLA DO 05/17/20 Justicifation of Admission Dx: Justifications for Admission: Justification of Admission Dx: N/A ZENAIDA ARZOLA DO May 17, 2020 15:04
[2020-05-17 15:15] VITALS: BP 113/69
== END 2020-05-17 15:24 | disposition home or self-care (01) ==
LOC: ER 12:26
DX: R11.2 Nausea with vomiting, unspecified (principal); R10.9 Unspecified abdominal pain; K21.9 Gastro-esophageal reflux disease without esophagitis
CPT/HCPCS: 36415; 80053; 80307; 81001; 81025; 83690; 85025; 96361; 96374; 99285; G0480; J2405; J7030

== ENCOUNTER 2021-06-23 12:08 | Emergency (ER) | payer SELFPAY ==
[~2021-06-23] VITALS: Ht 154.9 cm; Wt 68.2 kg
--- NOTE | 2021-06-23 12:24 | PHYS DOC ---
Past Medical History Past Medical History: GERD Past Surgical History: Knee Replacement Smoking Status: Never Smoker Alcohol Use: Heavy Drug Use: None Adult General HPI HPI Patient is a 36 year old female who presents with nausea and vomiting. Patient states she has been having symptoms over the last 48 hours. She relates that her symptoms are likely secondary to alcohol abuse. Her last drink was Saturday. Does not complain of significant abdominal pain. Has had vomiting though too numerous episodes to count. No fever. Patient states she has chronic recurring similar symptoms. No hematemesis. No melanotic stools. Denies urinary symptoms. Review of Systems Review of Systems Constitutional: Denies fever or chills Eyes: Denies change in visual acuity HENT: Denies nasal congestion or sore throat Respiratory: Denies cough or shortness of breath Cardiovascular: No additional information not addressed in HPI GI: as documented in HPI : Denies dysuria or hematuria Musculoskeletal: Denies back pain or joint pain Integument: Denies rash or skin lesions Neurologic: Denies headache, focal weakness or sensory changes Endocrine: Denies polyuria or polydipsia All other systems were reviewed and found to be within normal limits, except as documented in this note. Current Medications Current Medications Current Medications Medications (Trade) Dose Ordered Sig/Eran Start Time Stop Time Status Last Admin Dose Admin Ceftriaxone Sodium (Rocephin) 1 gm 1X ONCE 06/23/21 13:45 06/23/21 13:46 DC 06/23/21 13:58 1 GM Dextrose/Sodium Chloride 1,000 ml @ 1,000 mls/hr 1X ONCE 06/23/21 13:30 06/23/21 14:29 06/23/21 13:58 1,000 MLS/HR Diphenhydramine HCl (Benadryl) 25 mg 1X ONCE 06/23/21 12:45 06/23/21 12:46 DC 06/23/21 12:45 25 MG Famotidine (Pepcid Vial) 20 mg 1X ONCE 06/23/21 12:45 06/23/21 12:46 DC 06/23/21 12:46 20 MG Prochlorperazine Edisylate (Compazine) 10 mg 1X ONCE 06/23/21 12:45 06/23/21 12:46 DC 06/23/21 12:46 10 MG Allergies Allergies Allergies Coded Allergies Type Severity Reaction Last Updated Verified No Known Drug Allergies 02/10/16 No Physical Exam Physical Exam Constitutional: Well developed, well nourished, no acute distress, non-toxic appearance HENT: Normocephalic, atraumatic, bilateral external ears normal, oropharynx moist Eyes: PERRLA, EOMI, conjunctiva normal Neck: Normal range of motion Cardiovascular:Heart rate regular rhythm, no murmur Lungs & Thorax: Bilateral breath sounds clear to auscultation Abdomen: Bowel sounds normal, soft, no tenderness Skin: Warm, dry, no erythema, no rash. Back: Normal ROM Extremities: No tenderness, no cyanosis, no clubbing, ROM intact, no edema Neurologic: Alert and oriented X 3 Psychologic: Affect normal Current Patient Data Vital Signs Vital Signs Date Time Temp Pulse Resp B/P (MAP) Pulse Ox O2 Delivery O2 Flow Rate FiO2 06/23/21 12:08 99.2 58 16 125/63 (83) 99 Room Air 99.2 Lab Values Laboratory Tests Test 06/23/21 12:23 06/23/21 12:25 06/23/21 12:31 White Blood Count 9.4 x10^3/uL (4.0-11.0) Red Blood Count 4.86 x10^6/uL (3.50-5.40) Hemoglobin 13.6 g/dL (12.0-15.5) Hematocrit 41.3 % (36.0-47.0) Mean Corpuscular Volume 85 fL (79-100) Mean Corpuscular Hemoglobin 28 pg (25-35) Mean Corpuscular Hemoglobin Concent 33 g/dL (31-37) Red Cell Distribution Width 14.6 % (11.5-14.5) H Platelet Count 325 x10^3/uL (140-400) Neutrophils (%) (Auto) 86 % (31-73) H Lymphocytes (%) (Auto) 9 % (24-48) L Monocytes (%) (Auto) 5 % (0-9) Eosinophils (%) (Auto) 0 % (0-3) Basophils (%) (Auto) 0 % (0-3) Neutrophils # (Auto) 8.1 x10^3/uL (1.8-7.7) H Lymphocytes # (Auto) 0.9 x10^3/uL (1.0-4.8) L Monocytes # (Auto) 0.4 x10^3/uL (0.0-1.1) Eosinophils # (Auto) 0.0 x10^3/uL (0.0-0.7) Basophils # (Auto) 0.0 x10^3/uL (0.0-0.2) Sodium Level 139 mmol/L (136-145) Potassium Level 3.7 mmol/L (3.5-5.1) Chloride Level 100 mmol/L (98-107) Carbon Dioxide Level 27 mmol/L (21-32) Anion Gap 12 (6-14) Blood Urea Nitrogen 13 mg/dL (7-20) Creatinine 0.8 mg/dL (0.6-1.0) Estimated GFR (Cockcroft-Gault) 97.1 BUN/Creatinine Ratio 16 (6-20) Glucose Level 115 mg/dL (70-99) H Calcium Level 10.5 mg/dL (8.5-10.1) H Total Bilirubin 0.4 mg/dL (0.2-1.0) Aspartate Amino Transferase (AST) 23 U/L (15-37) Alanine Aminotransferase (ALT) 37 U/L (14-59) Alkaline Phosphatase 59 U/L (46-116) Total Protein 8.3 g/dL (6.4-8.2) H Albumin 4.3 g/dL (3.4-5.0) Albumin/Globulin Ratio 1.1 (1.0-1.7) Amylase Level 110 U/L (25-115) Lipase 263 U/L (73-393) Urine Collection Type Unknown Urine Color Leonie Urine Clarity Cloudy Urine pH 7.0 (<5.0-8.0) Urine Specific [place] >=1.030 (1.000-1.030) Urine Protein 30 mg/dL (NEG-TRACE) Urine Glucose (UA) 100 mg/dL (NEG) Urine Ketones (Stick) >=80 mg/dL (NEG) Urine Blood Trace (NEG) Urine Nitrite Negative (NEG) Urine Bilirubin Small (NEG) Urine Urobilinogen Dipstick 1.0 mg/dL (0.2 mg/dL) Urine Leukocyte Esterase Negative (NEG) Urine RBC 3-5 /HPF (0-2) Urine WBC 1-4 /HPF (0-4) Urine Squamous Epithelial Cells Many /LPF Urine Bacteria Moderate /HPF (0-FEW) Urine Mucus Marked /LPF POC Urine HCG, Qualitative Hcg positive (Negative) Laboratory Tests 06/23/21 12:23 Laboratory Tests 06/23/21 12:23 EKG EKG [] Radiology/Procedures Radiology/Procedures [] Course & Med Decision Making Course & Med Decision Making Pertinent Labs and Imaging studies reviewed. (See chart for details) Patient is seen on arrival to her room. Overall is nontoxic-appearing. She does complain of active nausea but she is not vomiting. Does not have significant findings on abdominal examination. Nonperitoneal exam. Soft and no tenderness. Today, we will treat her symptomatically and check labs. Orders placed for IV, saline, Compazine and Benadryl and Pepcid. I did review her electronic medical record and she has many visits similar to today. 14:30: Patient resting comfortably. No emesis since coming to the ER. Currently tolerating p.o. fluids. Feeling much improved subjectively. Patient was incidentally found to be during this ER visit. She was unaware of this condition. Labs are reviewed. She had some bacteriuria but no significant leukocytosis. She is empirically treated in the ER with Rocephin and placed on Macrobid. Urine culture is added to her work-up. Stable for discharge home. She is given Reglan to use at home and recommended follow-up with Dr. Durham, on- call OB physician today. Return precautions discussed and she will come back to this ER for any new or severely worsening symptoms. Also recommended that she begin vitamins and refrain from alcohol Dragon Disclaimer Dragon Disclaimer This electronic medical record was generated, in whole or in part, using a voice recognition dictation system. Departure Departure Impression: Primary Impression: Nausea and vomiting during Additional Impression: Urinary tract infection Disposition: HOME HEALTH CARE SERVICE Condition: IMPROVED Referrals: NO PCP (PCP) Patient Instructions: Nausea and Vomiting Scripts Nitrofurantoin Monohyd/M-Cryst (MACROBID 100 MG CAPSULE) 100 Mg Capsule 1 CAP PO BID for 7 Days, #14 CAP 0 Refills Prov: TEENA ARMENDARIZ DO 06/23/21 Metoclopramide Hcl (REGLAN) 10 Mg Tablet 1 TAB PO BID PRN for NAUSEA for 10 Days, #15 TAB 0 Refills before food and bedtime Prov: TEENA ARMENDARIZ DO 06/23/21 Problem Qualifiers TEENA ARMENDARIZ DO Jun 23, 2021 12:24
[2021-06-23 12:45] LABS: BASO % 0 % (0-3); EOS % 0 % (0-3); HEMATOCRIT 41.3 % (36.0-47.0); HEMOGLOBIN 13.6 g/dL (12.0-15.5); LYMPH # 0.9 x10^3/uL (1.0-4.8); LYMPH % 9 % (24-48); MEAN CORPUSCULAR HEMOGLOBIN 28 pg (25-35); MEAN CORPUSCULAR HGB CONC 33 g/dL (31-37); MEAN CORPUSCULAR VOLUME 85 fL (79-100); MONO # 0.4 x10^3/uL (0.0-1.1); MONO % 5 % (0-9); NEUT # 8.1 x10^3/uL (1.8-7.7); NEUT % 86 % (31-73); PLATELET COUNT 325 x10^3/uL (140-400); RED BLOOD COUNT 4.86 x10^6/uL (3.50-5.40); RED CELL DISTRIBUTION WIDTH 14.6 % (11.5-14.5); WHITE BLOOD COUNT 9.4 x10^3/uL (4.0-11.0)
[2021-06-23] MEDS ORDERED: diphenhydrAMINE 50 MG/ML VIAL IVP ONE (12:45)
[2021-06-23] MEDS ORDERED: FAMOTIDINE 20 MG/2 ML VIAL IVP ONE (12:45)
[2021-06-23] MEDS ORDERED: PROCHLORPERAZINE 10 MG/2 ML VIAL. IV ONE (12:45)
[2021-06-23 12:46] LABS: BILIRUBIN,URINE SMALL (NEG); CLARITY,URINE CLOUDY; COLOR,URINE AMBER; NITRITE,URINE NEGATIVE (NEG); PROTEIN,URINE 30 mg/dL (NEG-TRACE)
[2021-06-23 12:51] LABS: BACTERIA,URINE MODERATE /HPF (0-FEW)
[2021-06-23 12:53] LABS: CALCIUM 10.5 mg/dL (8.5-10.1); CREATININE 0.8 mg/dL (0.6-1.0); GFR 97.1; POTASSIUM 3.7 mmol/L (3.5-5.1)
[2021-06-23 12:59] LABS: ALBUMIN 4.3 g/dL (3.4-5.0); ALBUMIN/GLOBULIN RATIO 1.1 (1.0-1.7); TOTAL BILIRUBIN 0.4 mg/dL (0.2-1.0); TOTAL PROTEIN 8.3 g/dL (6.4-8.2)
[2021-06-23] MEDS ORDERED: IV DEXTROSE 5% - 0.9 % NACL 1,000 ML IV ONE (13:30)
[2021-06-23] MEDS ORDERED: cefTRIAXone IV Push 1 GM VIAL. IVP ONE (13:45)
[2021-06-23] MEDS ORDERED: NITR100C62 PO (14:12)
[2021-06-23] MEDS ORDERED: METO10TA81 PO (14:12)
[2021-06-23 14:30] VITALS: BP 106/65
== END 2021-06-23 14:45 | disposition home health service (06) ==
LOC: ER 12:08
DX: O86.20 Urinary tract infection following delivery, unspecified (principal); O21.9 Vomiting of pregnancy, unspecified; K21.9 Gastro-esophageal reflux disease without esophagitis; Z3A.00 Weeks of gestation of pregnancy not specified
CPT/HCPCS: 36415; 80053; 81001; 81025; 82150; 83690; 85025; 87086; 96361; 96374; 96375; 99285; J0696; J0780; J1200; J3490; J7042

== ENCOUNTER → 2021-07-24 | Outpatient (CLI) | payer OTHER ==
[~2021-07-24] MED LIST changes: +NITR100C62 PO
[2021-07-24 16:09] LABS: HEMATOCRIT 34.1 % (36.0-47.0); HEMOGLOBIN 11.2 g/dL (12.0-15.5); MEAN CORPUSCULAR HEMOGLOBIN 28 pg (25-35); MEAN CORPUSCULAR HGB CONC 33 g/dL (31-37); MEAN CORPUSCULAR VOLUME 85 fL (79-100); PLATELET COUNT 282 x10^3/uL (140-400); WHITE BLOOD COUNT 7.6 x10^3/uL (4.0-11.0)
[2021-07-25 17:23] LABS: RUBELLA IGG ANTIBODY <0.90 index (Immune >0.99)
== END ==
LOC: LAB 15:13
PROVIDERS: ATTEND Obstetrics & Gynecology
DX: O09.72 Supervision of high risk pregnancy due to social problems, second trimester (principal); Z3A.00 Weeks of gestation of pregnancy not specified
CPT/HCPCS: 36415; 85027; 85660; 86592; 86703; 86762; 86787; 86803; 86850; 86900; 86901; 87340

== ENCOUNTER → 2021-08-04 | Outpatient (CLI) | payer OTHER ==
--- NOTE | 2021-08-05 07:42 | RAD ---
INDICATION: Reason: SIZE AND DATES / Spl. Instructions: / History: COMPARISON: Not available FINDINGS: Focused ultrasound images were obtained through the uterus. Intrauterine is identified. heartbeat is 144. Placenta is posterior. Amniotic fluid unremarkable. BPD 31 mm, 15 weeks and 5 days Head circumference 120 mm, 15 weeks 6 day Abdominal circumference 94 mm, 15 weeks and 4 days Femur length 21 mm, 16 weeks and 1 day. Estimated gestational age is 15 weeks and 6 days. Estimated due date 01/20/2022 Cervix is not well seen right now secondary to overlying structures obscuring. IMPRESSION: * Estimated gestational age of 15 weeks and 6 days. Recommend routine anomaly screening at 18-22 we eks. Electronically signed by: Jatinder Carrero MD (08/05/2021 7:40 AM) [id number]
== END ==
LOC: US 16:04
PROVIDERS: ATTEND Obstetrics & Gynecology
DX: O09.72 Supervision of high risk pregnancy due to social problems, second trimester (principal); Z3A.15 15 weeks gestation of pregnancy
CPT/HCPCS: 76815

== ENCOUNTER → 2021-09-13 | Outpatient (CLI) | payer OTHER ==
--- NOTE | 2021-09-14 15:50 | RAD ---
Study: US OB >14 WEEKS Clinical Indication: Anatomy scan. Comparison: 08/04/2021 Technique: Multiple grayscale images, color Doppler, and M-mode images of the uterus are obtained. Findings: Single live intrauterine gestation in breech presentation. The placenta is posterior in location with out placenta previa. Amniotic fluid index of 10.3 cm. Closed cervic measuring 5.3 cm in length. Biometrical data: BPD = 4.67 cm for 20 weeks 1 days HC = 18.46 cm for 20 weeks 6 days AC = 16.2 cm for 21 weeks 2 days FL = 3.68 cm for 21 weeks 5 days CI ratio = 71.9 HC/AC ratio = 1.14 FL/HC ratio = 19.9 FL/AC ratio = 22.7 The estimated sonographic gestational age is 21 weeks 0 days for a delivery date of 01/24/2022. The es timated date of delivery provided by the last menstrual period is 01/20/2022. Estimated weight of 418 grams +/- 62. 4 chamber heart with cardiac activity. The heart rate of 140 beats per minute. Bilateral upper and lower extremities are identified. Three-vessel cord with cord insertion visualized. stomach and urinary bladder are identified. Both kidneys are seen. The spine and brain are unremarkable. No gross anatomic abnormality. Impression: 1. Single live intrauterine gestation with estimated sonographic gestational age of 21 weeks 0 days corresponding to a delivery date of 01/24/2022. Estimated delivery date by last menstrual period of . weight estimate of 418 g +/- 62. 2. Breech presentation at this time. Posterior placenta without previa. Within normal limits amnioti c fluid volume. Closed cervix measuring 5.3 cm in length. 3. No malformation identified on the survey. Electronically signed by: STACI ASHTON MD (09/14/2021 3:47 PM) [id number]
== END ==
LOC: US 14:59
PROVIDERS: ATTEND Obstetrics & Gynecology
DX: O09.92 Supervision of high risk pregnancy, unspecified, second trimester (principal); O32.1XX0 Maternal care for breech presentation, not applicable or unspecified; Z3A.21 21 weeks gestation of pregnancy
CPT/HCPCS: 76805